=== PATIENT | female | born 1960 | race Asian ===

== ENCOUNTER 2019-12-17 08:52 | Day surgery (SDC) | payer OTHER | END 2019-12-17 10:30 | disposition home or self-care (01) | LOC: OR 08:52 | PROC: 3E0T3BZ Introduction of Anesthetic Agent into Peripheral Nerves and Plexi, Percutaneous Approach (ICD-10-PCS; principal; 2019-12-17) | PROC: BW1CYZZ Fluoroscopy of Lower Extremity using Other Contrast (ICD-10-PCS; 2019-12-17) | DX: M25.562 Pain in left knee (principal); M17.12 Unilateral primary osteoarthritis, left knee | CPT/HCPCS: J2001 ==

== ENCOUNTER 2020-01-07 08:35 | Day surgery (SDC) | payer OTHER ==
[~2020-01-07] VITALS: Ht 170.2 cm; Wt 166.0 kg
== END 2020-01-07 10:00 | disposition home or self-care (01) ==
LOC: OR 08:35
PROC: 3E0T3BZ Introduction of Anesthetic Agent into Peripheral Nerves and Plexi, Percutaneous Approach (ICD-10-PCS; principal; 2020-01-07)
PROC: B01BYZZ Fluoroscopy of Spinal Cord using Other Contrast (ICD-10-PCS; 2020-01-07)
DX: M25.562 Pain in left knee (principal); M17.12 Unilateral primary osteoarthritis, left knee
CPT/HCPCS: J2001

== ENCOUNTER 2020-07-07 07:58 | Day surgery (SDC) | payer OTHER | END 2020-07-07 09:54 | disposition home or self-care (01) | LOC: OR 07:58 | PROC: 3E0T3TZ Introduction of Destructive Agent into Peripheral Nerves and Plexi, Percutaneous Approach (ICD-10-PCS; principal; 2020-07-07) | DX: M25.562 Pain in left knee (principal); M17.12 Unilateral primary osteoarthritis, left knee | CPT/HCPCS: J2001 ==